=== PATIENT | male | born 1945 | race Caucasian/White ===

== ENCOUNTER → 2017-09-26 | Outpatient (CLI) | payer OTHER ==
[~2017-09-26] MED LIST: ACET-1256 PO; AMIO200T4 PO; AMLO5TAB3 PO; ASPI81TA28 PO; CZR50 PO; DOXA2TAB PO; GLIM2TAB2 PO; HYDR-5688 PO; LOSA1TAB38 PO; LPR100 PO; METF-384 PO; METO50TA16 PO; MONT1TAB3 PO; POTASSIUM CITRATE PO; PRLSR20 PO; SIMV20TA5 PO; TRAM-10 PO; WARF3TAB6 PO
== END | disposition home or self-care (01) ==
LOC: C.LABSPEC 10:48
DX: T84.51XA Infection and inflammatory reaction due to internal right hip prosthesis, initial encounter (principal); Y83.8 Other surgical procedures as the cause of abnormal reaction of the patient, or of later complication, without mention of misadventure at the time of the procedure; Z96.641 Presence of right artificial hip joint

== ENCOUNTER → 2017-10-06 | Outpatient (CLI) | payer OTHER ==
[~2017-10-06] MED LIST changes: -AMIO200T4 PO; -CZR50 PO; -HYDR-5688 PO; -LPR100 PO; -TRAM-10 PO
[2017-10-06 09:45] LABS: BASO % 0.6 %; BASO ABS # 0.04 K/uL (0-0.2); EOS % 0.6 %; EOS ABS # 0.04 K/uL (0-0.5); HEMATOCRIT 28.1 % (42-52); HEMOGLOBIN 8.5 g/dL (14.0-18.0); IG# 0.03 K/uL (0.00-0.02); LYMPH % 13.8 %; MEAN CELL VOLUME 80.5 fL (80-100); MEAN CORPUSCULAR HEMOGLOBIN 24.4 pg (25-34); MEAN CORPUSCULAR HGB CONC 30.2 g/dl (32-36); MEAN PLATELET VOLUME 8.8 fL (7.4-10.4); MONO % 5.5 %; NEUT % 79.1 %; NEUT ABS # 5.73 K/uL (1.4-6.5); PLATELET COUNT 470 K/uL (130-400); RED CELL DISTRIBUTION WIDTH CV 17.6 % (11.5-14.5); RED CELL DISTRIBUTION WIDTH SD 51.7 fL (36.4-46.3); WHITE BLOOD COUNT 7.24 K/uL (4.8-10.8)
[2017-10-06 09:51] LABS: ALBUMIN 2.9 gm/dl (3.4-5.0); BLOOD UREA NITROGEN 36 mg/dl (7-18); CALCIUM 9.9 mg/dl (8.5-10.1); CARBON DIOXIDE 21 mmol/L (21-32); CREATININE 1.26 mg/dl (0.60-1.40); GLUCOSE 145 mg/dl (70-99); POTASSIUM 4.3 mmol/L (3.5-5.1); SODIUM 137 mmol/L (136-145)
[2017-10-06 10:11] LABS: PTT PATIENT 50.7 SECONDS (21.0-31.0)
[2017-10-06 11:23] LABS: HEMOGLOBIN A1C 6.8 % (4.5-5.6)
== END | disposition home or self-care (01) ==
LOC: C.CPL 08:27
DX: Z01.812 Encounter for preprocedural laboratory examination (principal); Z01.810 Encounter for preprocedural cardiovascular examination